=== PATIENT | female | born 1985 | race Caucasian/White ===

== ENCOUNTER 2016-11-10 13:55 | Emergency (ER) | payer OTHER ==
[~2016-11-10 13:55] MED LIST: ACETAMINOPHEN; ADVIL100 MG; AMBIEN10 MG PO; AMOXICILLIN875 MG PO; B-121000 MC3 PO; BACTRIM DS TABL1 TA1 PO; GOLYTELY4000 ML PO; HYDROCODON-ACE1 EAC7 PO; ILOTYCIN OINTMENT OP; KLONOPIN; MEDROL4 MG/DOSE- PO; METRONIDAZOLE PO; PRENATAL1 TA1 PO; PYRIDIUM PO; SKELAXIN PO; TRAMADOL HCL50 M2 PO; ULTRAM PO; ZOFRAN PO
[2016-11-10] MEDS ORDERED: MINIPRESS (14:49)
[2016-11-10] MEDS ORDERED: ATARAX (14:50)
== END 2016-11-10 16:23 | disposition home or self-care (01) ==
LOC: SED 13:55
DX: J06.9 Acute upper respiratory infection, unspecified (principal); G40.909 Epilepsy, unspecified, not intractable, without status epilepticus; F17.210 Nicotine dependence, cigarettes, uncomplicated; Z88.8 Allergy status to other drugs, medicaments and biological substances; Z79.899 Other long term (current) drug therapy; Z98.890 Other specified postprocedural states; Z86.19 Personal history of other infectious and parasitic diseases
CPT/HCPCS: 84703; 99283

== ENCOUNTER 2016-11-16 17:44 | Emergency (ER) | payer OTHER ==
[~2016-11-16 17:44] MED LIST changes: +ATARAX; +MINIPRESS
== END 2016-11-16 18:04 | disposition home or self-care (01) ==
LOC: SED 17:44
DX: J01.90 Acute sinusitis, unspecified (principal); F17.210 Nicotine dependence, cigarettes, uncomplicated; F41.9 Anxiety disorder, unspecified; Z86.19 Personal history of other infectious and parasitic diseases
CPT/HCPCS: 99282